=== PATIENT | female | born 1950 | race Caucasian/White ===

== ENCOUNTER → 2017-02-25 | Outpatient (CLI) | payer BC ==
--- NOTE | ~2017-02-25 | MR17 ---
[facility] A Service of [facility] RADIOLOGY TEXT RESULTS PATIENT: HANDY MICHAEL LOCATION: CEEG : 54 UNIT #: [id number] AGE: [address]: Avril Ogden MD SEX: F ORDER DR: [id number] [facility] [address] [place], [place] [address] [id number] O MR#: [id number] Acc #: [id number] NAME: HANDY MICHAEL : 1950 SEX: F STUDY DATE/TIME: 02/25/2017 10:36 UNIT: CEEG ROOM: STUDY DESCRIPTION: MR Brain WWo Contrast Attending Physician: Avril Ogden M.D. Referring Physician: Avril Ogden M.D. Ordering Physician: Avril Ogden M.D. Primary Care Physician: Avril Ogden M.D. MRI CENTER REPORT This report is preliminary unless electronic signature is present. EXAM MRI of the brain without and with HISTORY 66-year-old female with unexpected abnormal involuntary movements concerning for seizure disorder. Patient has had tremors off and on for 10 years. She has recently change doctors and the current doctor is concerned for the possibility of seizure disorder. No cancer history. TECHNIQUE MRI of the brain was performed prior to and following intravenous administration of 20 mL MultiHance. 1.5T imaging system utilized. COMPARISON STUDIES None. FINDINGS There is no evidence for recent ischemic insult on the diffusion series. Incidental note is made of a partially empty sella. There is no Chiari-I malformation. There is no extraaxial fluid collection. Ventricles are normal in size and configuration for age group. There is nothing to suggest mesial temporal sclerosis. There is no migrational abnormality appreciated. The intracranial flow voids are maintained. There is no intracranial mass effect. The mastoid air cells are clear. The visualized paranasal sinuses are clear. Patient has had cataract surgery bilaterally. There is no MRI evidence for intracranial hemorrhage. Only mild white matter signal abnormality is seen, nonspecific, within the range expected for age group. Following contrast administration, there is no pathologic intracranial enhancement. There is no intracranial mass lesion. If there is an EEG which shows an abnormality, direct comparison is recommended. [facility] A Service of [facility] RADIOLOGY TEXT RESULTS PATIENT: HANDY MICHAEL LOCATION: CEEG : 54 UNIT #: [id number] AGE: [address]: Avril Ogden MD SEX: F ORDER DR: IMPRESSION 1. Essentially normal MRI of the brain with and without contrast for patient's age group. Minor white matter disease is within the range expected for age group. No discrete seizure focus is seen but if there is an EEG which shows an abnormality, direct comparison would be recommended. Dictated by... Windy Tabares M.D. THIS IS AN ELECTRONICALLY VERIFIED REPORT Windy Tabares M.D. at 02/26/2017 7:58 AM SAC/pcl TD: 02/25/2017 18:17 JOB #: [id number] MRI CENTER REPORT Page 1 of 1 COPY
--- NOTE | ~2017-02-25 | EE ---
Unit #: [id number] #: [id number] Patient: HANDY MICHAEL [id number] [address] [address] [id number] O MR#: [id number] NAME: HANDY MICHAEL. : 1950 SEX: F STUDY DATE/TIME: 02/25/2017 UNIT: CEEG ROOM: STUDY DESCRIPTION: EEG Attending Physician: Avril Ogden M.D. Referring Physician: Avril Ogden M.D. Primary Care Physician: Avril Ogden M.D. NEURODIAGNOSTICS REPORT EXAM EEG REASON FOR THE STUDY Spells, questionable seizure, the patient is having MRI and EEG EEG DESCRIPTION This is an outpatient, digitally recorded, multi-montage adult EEG with leads placed according to the International 10-20 system. Hyperventilation and photic stimulation were attempted. With the patient fully aroused there is 10 to 11 Hz posterior background. The patient did become drowsy but I did not see any deeper stages of sleep. Next, hyperventilation was attempted but I did not see any significant changes. Next, photic stimulation was attempted in an intermittent stepwise pattern up to the flash frequencies of 30 Hz but I did not see any driving, asymmetry or paroxysmal activity. IMPRESSION This is an essentially normal adult awake and drowsy EEG. An EEG like this does not rule out epilepsy. Clinical correlation is recommended. Dictated by... Komal Farnsworth/rosanna TD: 03/02/2017 19:47 JOB #: [id number] NEURODIAGNOSTICS REPORT Page 1 of 1 X Judi Garcia MD NEURODIAGNOSTICS REPORT
[2017-02-25 10:41] LABS: POC - CREATININE 0.97 mg/dL (0.44-1.03); POC - GFR >60.0 mL/min (>60)
== END | disposition home or self-care (01) ==
LOC: CEEG 08:32
PROVIDERS: Internal Medicine
DX: R25.9 Unspecified abnormal involuntary movements (principal); R90.82 White matter disease, unspecified
CPT/HCPCS: 70553; 82565; 95816; A9577